=== PATIENT | male | born 1985 | race Caucasian/White ===

== ENCOUNTER 2020-06-28 16:05 | Emergency (ER) | payer OTHER ==
[~2020-06-28] VITALS: Ht 185.4 cm; Wt 68.0 kg
[2020-06-28] MEDS ORDERED: LIDODERM1 EACH TRANSDERM (17:40)
[2020-06-28] MEDS ORDERED: MEDROLDOSEPACK PO (17:40)
[2020-06-28 17:45] VITALS: BP 115/70
== END 2020-06-28 17:46 | disposition home or self-care (01) ==
LOC: M.ERS 16:05
DX: M54.5 Low back pain (principal); M54.6 Pain in thoracic spine